=== PATIENT | male | born 1965 | race Caucasian/White ===

== ENCOUNTER 2023-07-20 13:22 | Outpatient (CLI) | payer OTHER, SELFPAY | END 2023-07-20 13:23 | disposition home or self-care (01) | PROVIDERS: PCP Family Medicine; Visit Provider Family Medicine | DX: Z00.00 Encounter for general adult medical examination without abnormal findings (principal); E78.5 Hyperlipidemia, unspecified; R03.0 Elevated blood-pressure reading, without diagnosis of hypertension; Z12.5 Encounter for screening for malignant neoplasm of prostate; E89.0 Postprocedural hypothyroidism; Z11.59 Encounter for screening for other viral diseases | CPT/HCPCS: 80053; 80061; 82043; 82570; 84443; 86803; G0103 ==

== ENCOUNTER 2024-12-08 14:50 | Outpatient (CLI) | payer OTHER, SELFPAY | END 2024-12-08 14:51 | disposition home or self-care (01) | PROVIDERS: PCP Family Medicine; Visit Provider Family Medicine | DX: Z00.00 Encounter for general adult medical examination without abnormal findings (principal); E89.0 Postprocedural hypothyroidism; E78.5 Hyperlipidemia, unspecified; I10 Essential (primary) hypertension; Z12.5 Encounter for screening for malignant neoplasm of prostate | CPT/HCPCS: 80053; 80061; 82043; 82570; 84439; 84443; G0103 ==

== ENCOUNTER 2025-01-12 08:36 | Outpatient (CLI) | payer OTHER, SELFPAY ==
--- NOTE | 2025-01-12 11:33 | P.ANES_ITS ---
Anesthesia Charges Start Date/Time Anesthesia Start Date: 01/12/25 Anesthesia Start Time: 09:31 Stop Date/Time Anesthesia Stop Date: 01/12/25 Anesthesia Stop Time: 09:58 Coding CPT Codes CPT Codes: EFRAIN LWR INTST NDSC NOS - [id number] ([id number]) P2 - PATIENT W/MILD SYST DISEASE, QK - REELING OPERATOR 2-4 CNCRNT ANES PROC, QX - MIXING SUPERVISOR SVC W/ MD MED DIRECTION
--- NOTE | 2025-01-12 11:33 | W.ANESCHARGE ---
Anesthesia Charges Start Date/Time Anesthesia Start Date: 01/12/25 Anesthesia Start Time: 09:31 Stop Date/Time Anesthesia Stop Date: 01/12/25 Anesthesia Stop Time: 09:58 Coding CPT Codes CPT Codes: EFRAIN LWR INTST NDSC NOS - [id number] ([id number]) P2 - PATIENT W/MILD SYST DISEASE, QK - ACCESS DIRECTOR 2-4 CNCRNT ANES PROC, QX - DISTANCE LEARNING TECHNICIAN SVC W/ MD MED DIRECTION
--- NOTE | 2025-01-12 12:12 | P.ANES_ITS ---
Anesthesia Charges Start Date/Time Anesthesia Start Date: 01/12/25 Anesthesia Start Time: 09:31 Stop Date/Time Anesthesia Stop Date: 01/12/25 Anesthesia Stop Time: 09:58 Coding CPT Codes CPT Codes: EFRAIN LWR INTST NDSC NOS - [id number] ([id number]) P2 - PATIENT W/MILD SYST DISEASE, QK - ORDER ADMINISTRATOR 2-4 CNCRNT ANES PROC, QX - SLEEVE FIXER SVC W/ MD MED DIRECTION
--- NOTE | 2025-01-12 12:12 | W.ANESCHARGE ---
Anesthesia Charges Start Date/Time Anesthesia Start Date: 01/12/25 Anesthesia Start Time: 09:31 Stop Date/Time Anesthesia Stop Date: 01/12/25 Anesthesia Stop Time: 09:58 Coding CPT Codes CPT Codes: EFRAIN LWR INTST NDSC NOS - [id number] ([id number]) P2 - PATIENT W/MILD SYST DISEASE, QK - TECHNOLOGY PROJECT MANAGER 2-4 CNCRNT ANES PROC, QX - AIRCRAFT ENGINE MECHANIC OVERHAUL SVC W/ MD MED DIRECTION
== END 2025-01-12 08:37 | disposition home or self-care (01) ==
LOC: OP CLINIC 08:36
PROVIDERS: PCP Family Medicine; Visit Provider Surgery
DX: Z12.11 Encounter for screening for malignant neoplasm of colon (principal); Z83.719 Family history of colon polyps, unspecified; K64.8 Other hemorrhoids; K57.30 Diverticulosis of large intestine without perforation or abscess without bleeding; D12.3 Benign neoplasm of transverse colon; D12.1 Benign neoplasm of appendix; D12.2 Benign neoplasm of ascending colon
CPT/HCPCS: 00811; 00812; 45385; 88305; J2704